=== PATIENT | female | born 1975 | race Caucasian/White ===

== ENCOUNTER 2017-03-14 07:24 | Emergency (ER) | payer BC ==
[2017-03-14 07:40] VITALS: BP 117/57
--- NOTE | 2017-03-14 08:08 | UC ---
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 SORE THROAT, HEADACHE AT ONSET. NOW COUGHING. CHEST CONGESTIN, CHILLS, NO FEVER. NO N/V". 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 She has some sinus pressure over her forehead, has had sinus infection in past. not sure if she feels that way bc she has no nasal congestion. + body aches. gets temporary relief with otc meds - dayquil and advil cold and sinus. - History of Current Complaint Chief Complaint: UCRespiratory Stated Complaint: THROAT,COUGH Time Seen by Provider: 03/14/17 07:29 Hx Last Menstrual Period: 03/02/17 - Allergies/Home Medications Allergies/Adverse Reactions: Allergies Allergy/AdvReac Type Severity Reaction Status Date / Time Hydrocodone Allergy Intermediate Vomiting Verified 03/14/17 07:33 Penicillins Allergy Intermediate HIVES AND Verified 03/14/17 07:33 VOMITING Sulfa Drugs Allergy Intermediate HIVES AND Verified 03/14/17 07:33 VOMITING Erythromycin Allergy HIVES AND Verified 03/14/17 07:33 VOMITING Home Medications: Home Medications Echinacea [Echinacea Plus] 1 cap PO DAILY 03/14/17 [History Confirmed 03/14/17] Ibuprofen TAB* [Advil TAB*] 200 mg PO Q6H PRN 03/14/17 [History Confirmed ] Lactobacillus [Probiotic] 1 cap PO DAILY 03/14/17 [History Confirmed 03/14/17] PMH/Surg Hx/FS Hx/Imm Hx Previously Healthy: Yes - Surgical History Surgical History: Yes Surgery Procedure, Year, and Place: TONSILECTOMY.. POST DELEVERY BLEEDING REQUIRED SURGERY... - Family History Known Family History: Negative: Respiratory Disease - no asthma fhx. - Social History Alcohol Use: None Substance Use Type: None Smoking Status (MU): Never Smoked Tobacco - Immunization History Most Recent Influenza Vaccination: 2012 Hx Tetanus, Diphtheria Vaccination: Yes Vaccination Up to Date: Yes Review of Systems Constitutional: Chills, Fatigue Skin: Negative Eyes: Negative ENT: Sore Throat, Ear Ache, Sinus Pain/Tenderness Respiratory: Negative Cardiovascular: Negative Gastrointestinal: Negative Genitourinary: Negative Motor: Negative Neurovascular: Negative Musculoskeletal: Negative Neurological: Negative Psychological: Negative Is Patient Immunocompromised?: No All Other Systems Reviewed And Are Negative: Yes Physical Exam Triage Information Reviewed: Yes Appearance: Well-Appearing, Well-Nourished - mild distress Vital Signs: Initial Vital Signs Temp 99.5 F 03/14/17 07:35 Pulse 100 03/14/17 07:35 Resp 18 03/14/17 07:35 BP 117/57 03/14/17 07:35 Pulse Ox 97 03/14/17 07:35 Vital Signs Reviewed: Yes Eye Exam: Normal ENT: Positive: Pharynx normal, TMs normal, Other: - mild b/l frontal tenderness , no maxillary tenderness. Negative: Pharyngeal erythema, Tonsillar swelling, Tonsillar exudate, Muffled/hoarse voice Dental Exam: Normal Neck exam: Normal Neck: Positive: Supple, Nontender, No Lymphadenopathy Respiratory Exam: Normal Respiratory: Positive: Lungs clear, Normal breath sounds, No respiratory distress, No accessory muscle use. Negative: Crackles, Rhonchi, Stridor, Wheezing Cardiovascular Exam: Normal Cardiovascular: Positive: RRR, No Murmur, Pulses Normal, Brisk Capillary Refill Abdomen Description: Positive: Nontender, Soft Musculoskeletal Exam: Normal Neurological Exam: Normal Psychological Exam: Normal Skin Exam: Normal UC Diagnostic Evaluation - Laboratory O2 Sat by Pulse Oximetry: 97 Respiratory Course/Dx - Course Course Of Treatment: rapid strep neg. early sinusitis. rx for abx has been given for ceftin which she has taken beofre and prefers to use if needed (no allergic rxn sx). Adv to fill abx if sx worsen or not improve in 2-3 days. she is very agreeable with this plan. understands very low risk chance if allergic reaction and call 911 if sx ocur. takes probiotic daily. - Differential Dx/Diagnosis Differential Diagnosis/HQI/PQRI: Asthma, Bronchitis, Laryngitis, Sinusitis Provider Diagnoses: sinsuitis Discharge - Discharge Plan Condition: Stable Disposition: HOME Prescriptions: Cefuroxime Axetil [Ceftin 500 MG TAB] 500 mg PO BID #20 tab Patient Education Materials: Sinusitis (ED) Referrals: Levar Wick DO [Primary Care Provider] - 3 Days Additional Instructions: We discussed that if you are not feeling better in a few days/sinus pain symptoms are worsening, please start the antibiotic. Continue to take the probiotic that you take while on antibiotics. Increase fluids and rest.
== END 2017-03-14 08:26 | disposition home or self-care (01) ==
LOC: UCCORT 07:24
DX: J32.9 Chronic sinusitis, unspecified (principal); Z88.1 Allergy status to other antibiotic agents; Z88.5 Allergy status to narcotic agent; Z88.0 Allergy status to penicillin; Z88.2 Allergy status to sulfonamides
CPT/HCPCS: 87651; 99212; G0463

== ENCOUNTER 2017-08-09 07:33 | Emergency (ER) | payer BC ==
--- OUTSIDE RECORDS SUMMARY | 2017-08-09 07:41 | XMS REPORT ---
:1975 External Reference #:[id number] Author Organization [facility] Address [address] [address] Phone [phone] Care Team Providers Name Role Phone Irais Ly PA Care Team Information [facility] Unavailable Payers Type Date Identification Numbers Payment Provider Subscriber Health Maintenance [facility]: [id number] Rachael Valenzuela [facility] [place] ([facility]) [address] [address] [place] [address] Problems Date Description Provider Status Onset: 10/27/2007 Anxiety state Levar Wick DO Active Onset: 06/21/2007 Irritable bowel syndrome Levar Wick DO Active Onset: 06/21/2007 Acute gastritis Levar Wick DO Active Onset: 06/21/2007 Allergic rhinitis due to pollen Levar Wick DO Active Social History Type Date Description Comments ETOH Use Denies alcohol use Smoking Patient has never smoked Daily Caffeine Consumes on average 3 cups of tea per day General Hx Text SH: Marital: Legal Status: . Lives With: Mother, Father, Spouse, Daughter. 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 Alcohol: Denies alcohol use. Daily Caffeine: Consumes on average 3 cups of tea per day. Reviewed, no changes. Date: 06/08/2014 Allergies, Adverse Reactions, Alerts Date Description Reaction Status Severity Comments 07/01/2009 Zithromax active 01/13/2006 Erythromycin active 06/03/2015 Penicillin HIVES active Medications Medication Date Status Form Strength Qnty SIG Indications Ordering Provider Prednisone 08/07/ Hx Tablets 20mg 10tabs 2 by Zayda0.Fiona Cheung 2017 - mouth for Nicolasa stein, 08/14/ 3 days, 2017 then 1 by mouth daily for 4 days, take with food Proair HFA 03/15/ Active Aerosol 108(90Base 1units 2 puffs Andre.Fiona Cheung 2016 ) mcg/Act every 4 Nicolasa stein, hours as MD needed for cough or sob Escitalopram / Active Tablets 10mg 90tabs 1 po qd Gagen, Oxalate 0000 Addison Zimmerman [employer] CNM Cyclobenzaprine 05/13/ Hx Tablets 10mg 30tabs 1 by [email or web address] Yannick HCL 2016 - mouth Valeria, 05/27/ every at DO 2016 bedtime x 1-2 weeks, then as needed for muscle spasm Prednisone 05/13/ Hx Tablets 20mg 22tabs 3 tablets M54.5 Yannick 2016 - by mouth Valeria, 05/23/ for 4 DO 2016 days then 2 tablets by mouth for 3 days then 1 tablet until done. Take with food. Doxycycline 03/15/ Hx Tablets 100mg 20tabs 1 by Zayda0.Fiona Reediotri Hyclsaeed 2016 - mouth a, 03/25/ twice a Sharron, 2016 day [employer] Prednisone 03/15/ Hx Tablets 20mg 6tabs 2x/day by [email or web address] Hubert 2016 - mouth for a, 03/18/ 3 days Sharron, 2016 [employer] Benzonatate 12/05/ Hx Capsules 200mg 30caps 1 by [email or web address] Skye 2016 - mouth Corina steinn, 12/15/ three MD 2017 times a day as needed Doxycycline 08/24/ Hx Tablets 100mg 20tabs 1 by [email or web address] [place] stylesclate 2016 - mouth Levar, 12/05/ twice a DO 2016 day Zofran 04/09/ Hx Tablets 4mg 21tabs 1 by [place] 2015 - mouth Levar, 08/24/ every 8 DO 2016 hours as needed n/v Clobetasol 08/30/ Hx Cream 0.05% 60gm apply to 691.8 [place], Propionate 2014 - area Levar, 05/06/ twice a DO 2014 day Nystatin-Triamcin 06/08/ Hx Cream [id number] 60gm apply to [place] olone 2013 - Unit/GM-% rash Levar, 08/24/ twice a DO 2016 day Nystatin 06/08/ Hx Powder [id number] 60gm apply to [place], 2013 - /GM area Levar, 08/24/ three DO 2016 times per week Doxycycline 05/17/ Hx Capsules 100mg 20caps 1 by [place], Monohydrate 2013 - mouth Levar, 08/30/ twice a DO 2014 day Immunizations CPT Code Status Date Vaccine Reaction Lot # [id number] Given 06/13/2017 Fluvirin Immunization Given at [facility],Rte 281 [id number] Given 07/04/2015 Influenza Vaccine Given At Pharmacy Preservative & Antibiotic [facility] Free For Im Use 14859 Given 04/02/2014 Afluria Or Fluvirin Flu Vac RECEIVED AT [place] [id number] Intramuscular 86221 Given 05/28/2009 Administration Swine Flu Vaccine [id number] Given 05/25/2008 Tdap (Adacel) Ages 7 And Above Only 75850 Given 05/14/2008 Afluria Or Fluvirin Flu Vac Intramuscular 47656 Given 06/17/2007 Afluria Or Fluvirin Flu Vac Intramuscular 04349 Given 06/17/2007 Afluria Or Fluvirin Flu Vac Intramuscular Vital Signs Date Vital Result Comment 08/07/2017 Body Temperature 99.3 F Weight 217.00 lb Heart Rate 102 /min BP Systolic 126 mmHg BP Diastolic 72 mmHg Respiratory Rate 18 /min Height 61 inches 5'1" O2 % BldC Oximetry 97 % BMI (Body Mass Index) 41.0 kg/m2 05/13/2017 Body Temperature 98.2 F Weight 216.00 lb Heart Rate 72 /min BP Systolic 130 mmHg BP Diastolic 70 mmHg Respiratory Rate 18 /min 03/15/2017 Body Temperature 100.0 F Weight 217.00 lb Heart Rate 106 /min BP Systolic 118 mmHg BP Diastolic 72 mmHg Respiratory Rate 18 /min O2 % BldC Oximetry 96 % 12/05/2016 Weight 218.00 lb Heart Rate 82 /min BP Systolic 130 mmHg BP Diastolic 80 mmHg Respiratory Rate 18 /min O2 % BldC Oximetry 98 % 08/24/2016 Body Temperature 100.6 F Weight 209.00 lb Heart Rate 78 /min BP Systolic 130 mmHg BP Diastolic 80 mmHg Respiratory Rate 24 /min Height 61.25 inches 5'1.25" O2 % BldC Oximetry 98 % Ra BMI (Body Mass Index) 39.2 kg/m2 06/03/2015 Body Temperature 99.1 F Weight 224.00 lb Heart Rate 74 /min BP Systolic 118 mmHg BP Diastolic 72 mmHg Respiratory Rate 18 /min Height 61 inches 5'1" BMI (Body Mass Index) 42.3 kg/m2 10/01/2014 Body Temperature 99.6 F Weight 224.00 lb Heart Rate 78 /min BP Systolic 130 mmHg BP Diastolic 70 mmHg Respiratory Rate 24 /min Height 61 inches 5'1" O2 % BldC Oximetry 99 % Ra BMI (Body Mass Index) 42.3 kg/m2 08/30/2014 Body Temperature 99.4 F Weight 218.00 lb Heart Rate 78 /min BP Systolic 132 mmHg BP Diastolic 80 mmHg Respiratory Rate 24 /min Height 61 inches 5'1" BMI (Body Mass Index) 41.2 kg/m2 06/08/2014 Weight 222.00 lb Heart Rate 78 /min BP Systolic 112 mmHg BP Diastolic 70 mmHg Respiratory Rate 18 /min Height 61 inches 5'1" 05/15/2014 Body Temperature 98.6 F Weight 220.00 lb Heart Rate 82 /min BP Systolic 122 mmHg BP Diastolic 72 mmHg Respiratory Rate 18 /min Height 61 inches 5'1" O2 % BldC Oximetry 98 % Ra 04/16/2014 Body Temperature 98.9 F Weight 217.00 lb Heart Rate 70 /min BP Systolic 130 mmHg BP Diastolic 70 mmHg Respiratory Rate 18 /min Height 61 inches 5'1" 01/19/2014 Weight 218.00 lb Heart Rate 92 /min BP Systolic 128 mmHg BP Diastolic 78 mmHg Respiratory Rate 18 /min Height 61 inches 5'1" 05/26/2013 Body Temperature 99.2 F Weight 220.00 lb Heart Rate 78 /min BP Systolic 110 mmHg BP Diastolic 70 mmHg Respiratory Rate 18 /min O2 % BldC Oximetry 97 % Ra 03/27/2013 Body Temperature 98.2 F Weight 223.00 lb Heart Rate 70 /min BP Systolic 120 mmHg BP Diastolic 72 mmHg Respiratory Rate 18 /min 11/29/2012 Body Temperature 98.3 F Weight 213.00 lb Heart Rate 68 /min BP Systolic 128 mmHg BP Diastolic 70 mmHg Respiratory Rate 18 /min 10/28/2012 Weight 214.50 lb Heart Rate 84 /min BP Systolic 128 mmHg BP Diastolic 80 mmHg Respiratory Rate 16 /min Height 61 inches 5'1" 07/04/2012 Body Temperature 97.7 F Weight 203.00 lb Heart Rate 76 /min BP Systolic 120 mmHg BP Diastolic 74 mmHg Respiratory Rate 18 /min Height 61 inches 5'1" 05/11/2012 Body Temperature 98.4 F Weight 224.00 lb Heart Rate 95 /min BP Systolic 112 mmHg BP Diastolic 76 mmHg Respiratory Rate 19 /min O2 % BldC Oximetry 97 % 03/01/2012 Body Temperature 99.1 F Weight 219.00 lb (6 1/2 Mo ) Heart Rate 72 /min BP Systolic 110 mmHg BP Diastolic 72 mmHg Respiratory Rate 18 /min 01/23/2012 Body Temperature 98.3 F Weight 211.00 lb Heart Rate 76 /min BP Systolic 120 mmHg BP Diastolic 72 mmHg Respiratory Rate 18 /min 09/08/2011 Body Temperature 99.0 F Weight 210.00 lb Heart Rate 72 /min BP Systolic 118 mmHg BP Diastolic 76 mmHg Respiratory Rate 18 /min O2 % BldC Oximetry 98 % Ra 08/10/2011 Body Temperature 98.9 F Weight 220.00 lb Heart Rate 78 /min BP Systolic 120 mmHg BP Diastolic 80 mmHg Respiratory Rate 18 /min 07/14/2011 Weight 209.00 lb Heart Rate 66 /min BP Systolic 124 mmHg BP Diastolic 70 mmHg Respiratory Rate 18 /min 06/18/2011 Weight 208.00 lb Heart Rate 72 /min BP Systolic 110 mmHg BP Diastolic 70 mmHg Respiratory Rate 18 /min O2 % BldC Oximetry 98 % Ra 06/12/2011 Body Temperature 98.6 F Weight 212.00 lb Heart Rate 66 /min BP Systolic 132 mmHg BP Diastolic 72 mmHg Respiratory Rate 18 /min O2 % BldC Oximetry 95 % Ra 05/06/2011 Body Temperature 98.9 F Weight 208.25 lb Heart Rate 77 /min BP Systolic 124 mmHg BP Diastolic 78 mmHg Respiratory Rate 17 /min Height 61 inches 5'1" 02/05/2011 Weight 204.00 lb Heart Rate 72 /min BP Systolic 138 mmHg BP Diastolic 72 mmHg Respiratory Rate 18 /min Height 61 inches 5'1" 02/02/2011 Body Temperature 99.2 F Weight 202.00 lb Heart Rate 78 /min BP Systolic 128 mmHg BP Diastolic 70 mmHg Height 61 inches 5'1" 11/03/2010 Body Temperature 99.8 F Weight 202.00 lb Heart Rate 78 /min BP Systolic 134 mmHg BP Diastolic 76 mmHg Respiratory Rate 16 /min 10/07/2010 BP Systolic 120 mmHg BP Diastolic 80 mmHg 10/07/2010 Weight 202.00 lb Heart Rate 78 /min 72 Reg BP Systolic 126 mmHg BP Diastolic 80 mmHg Respiratory Rate 24 /min 07/29/2010 Body Temperature 99.0 F Weight 202.00 lb Heart Rate 70 /min BP Systolic 118 mmHg BP Diastolic 70 mmHg Respiratory Rate 14 /min 06/06/2010 Weight 203.00 lb Heart Rate 78 /min BP Systolic 118 mmHg BP Diastolic 76 mmHg Respiratory Rate 18 /min 05/23/2010 Body Temperature 98.6 F Weight 200.00 lb Heart Rate 80 /min BP Systolic 114 mmHg BP Diastolic 80 mmHg Respiratory Rate 16 /min 05/07/2010 Weight 202.00 lb Heart Rate 88 /min BP Systolic 128 mmHg LEFT BP Diastolic 82 mmHg LEFT Respiratory Rate 20 /min 04/11/2010 Body Temperature 100.4 F Weight 198.00 lb Heart Rate 16 /min BP Systolic 112 mmHg l arm BP Diastolic 70 mmHg l arm Respiratory Rate 18 /min 02/26/2010 Weight 197.06 lb Heart Rate 78 /min BP Systolic 106 mmHg BP Diastolic 72 mmHg Respiratory Rate 18 /min 01/29/2010 Body Temperature 99.8 F Weight 197.00 lb Heart Rate 78 /min BP Systolic 122 mmHg BP Diastolic 82 mmHg Respiratory Rate 18 /min O2 % BldC Oximetry 99 % Ra 12/06/2009 Body Temperature 99.6 F Heart Rate 64 /min BP Systolic 120 mmHg l arm BP Diastolic 80 mmHg l arm Respiratory Rate 18 /min 10/28/2009 Body Temperature 97.9 F Weight 199.12 lb Heart Rate 74 /min BP Systolic 118 mmHg BP Diastolic 70 mmHg 10/11/2009 Body Temperature 99.7 F Weight 200.00 lb Heart Rate 79 /min BP Systolic 130 mmHg BP Diastolic 72 mmHg 08/13/2009 Body Temperature 99.1 F Weight 199.00 lb Heart Rate 70 /min BP Systolic 122 mmHg BP Diastolic 80 mmHg Respiratory Rate 16 /min 07/01/2009 Weight 206.00 lb Heart Rate 78 /min BP Systolic 110 mmHg BP Diastolic 70 mmHg Respiratory Rate 24 /min O2 % BldC Oximetry 98 % 06/21/2009 Body Temperature 98.4 F Weight 206.00 lb Heart Rate 92 /min BP Systolic 112 mmHg BP Diastolic 80 mmHg Respiratory Rate 16 /min O2 % BldC Oximetry 93 % 05/20/2009 Body Temperature 99.0 F Weight 209.00 lb Heart Rate 84 /min BP Systolic 130 mmHg BP Diastolic 78 mmHg Respiratory Rate 16 /min 05/14/2009 Body Temperature 99.3 F Weight 208.00 lb Heart Rate 86 /min BP Systolic 132 mmHg BP Diastolic 80 mmHg 04/05/2009 Weight 211.00 lb Heart Rate 72 /min BP Systolic 124 mmHg BP Diastolic 82 mmHg Respiratory Rate 18 /min 03/18/2009 Body Temperature 99.4 F Weight 208.00 lb Heart Rate 68 /min BP Systolic 112 mmHg RIGHT BP Diastolic 72 mmHg RIGHT Respiratory Rate 15 /min 01/21/2009 Weight 208.00 lb Heart Rate 72 /min BP Systolic 124 mmHg BP Diastolic 72 mmHg Respiratory Rate 18 /min 01/09/2009 Body Temperature 98.4 F Weight 206.00 lb Heart Rate 68 /min BP Systolic 132 mmHg LEFT BP Diastolic 80 mmHg LEFT Respiratory Rate 16 /min 12/25/2008 Body Temperature 98.8 F Weight 201.00 lb Heart Rate 102 /min BP Systolic 112 mmHg BP Diastolic 80 mmHg Respiratory Rate 20 /min O2 % BldC Oximetry 97 % 12/22/2008 Body Temperature 99.0 F Weight 203.31 lb Heart Rate 72 /min BP Systolic 122 mmHg BP Diastolic 72 mmHg Respiratory Rate 18 /min O2 % BldC Oximetry 99 % On Room Air 12/21/2008 Body Temperature 99.0 F Weight 205.00 lb Heart Rate 84 /min BP Systolic 116 mmHg BP Diastolic 72 mmHg Respiratory Rate 18 /min 10/12/2008 Body Temperature 98.5 F Weight 202.00 lb Heart Rate 72 /min BP Systolic 118 mmHg BP Diastolic 80 mmHg Respiratory Rate 14 /min 10/03/2008 Body Temperature 99.4 F Weight 199.00 lb Heart Rate 78 /min BP Systolic 108 mmHg BP Diastolic 66 mmHg Respiratory Rate 18 /min 10/01/2008 Body Temperature 100.4 F Weight 197.00 lb Heart Rate 80 /min BP Systolic 120 mmHg BP Diastolic 88 mmHg Respiratory Rate 16 /min 09/21/2008 Weight 200.00 lb Heart Rate 72 /min BP Systolic 112 mmHg BP Diastolic 72 mmHg Respiratory Rate 18 /min 08/23/2008 Body Temperature 99.5 F Weight 198.00 lb Heart Rate 72 /min BP Systolic 118 mmHg BP Diastolic 72 mmHg Respiratory Rate 18 /min O2 % BldC Oximetry 87 % On Room Air. 06/26/2008 Body Temperature 98.0 F Weight 196.00 lb Heart Rate 72 /min BP Systolic 118 mmHg BP Diastolic 68 mmHg Respiratory Rate 18 /min 06/07/2008 Body Temperature 97.5 F Weight 197.00 lb Heart Rate 84 /min BP Systolic 118 mmHg BP Diastolic 76 mmHg Respiratory Rate 24 /min O2 % BldC Oximetry 98 % 05/25/2008 Weight 198.00 lb Heart Rate 78 /min BP Systolic 124 mmHg BP Diastolic 76 mmHg Respiratory Rate 18 /min 05/14/2008 Weight 196.00 lb Heart Rate 72 /min BP Systolic 118 mmHg BP Diastolic 76 mmHg Respiratory Rate 18 /min 02/29/2008 Body Temperature 98.0 F Weight 193.00 lb Heart Rate 110 /min BP Systolic 110 mmHg BP Diastolic 70 mmHg Respiratory Rate 16 /min O2 % BldC Oximetry 97 % Room Air 01/02/2008 Weight 187.00 lb Heart Rate 72 /min BP Systolic 100 mmHg BP Diastolic 70 mmHg Respiratory Rate 16 /min 12/27/2007 Body Temperature 97.4 F Weight 187.00 lb Heart Rate 72 /min BP Systolic 104 mmHg BP Diastolic 72 mmHg Respiratory Rate 18 /min O2 % BldC Oximetry 98 % Ra 12/23/2007 Body Temperature 97.9 F Weight 190.00 lb Heart Rate 78 /min BP Systolic 118 mmHg BP Diastolic 78 mmHg Respiratory Rate 18 /min 12/05/2007 Weight 189.00 lb Heart Rate 72 /min BP Systolic 128 mmHg BP Diastolic 72 mmHg Respiratory Rate 18 /min 10/27/2007 Weight 189.00 lb Heart Rate 78 /min BP Systolic 128 mmHg BP Diastolic 66 mmHg Respiratory Rate 18 /min 10/06/2007 Body Temperature 97.6 F Weight 190.00 lb Heart Rate 78 /min BP Systolic 118 mmHg BP Diastolic 70 mmHg Respiratory Rate 18 /min 09/13/2007 Weight 192.00 lb Heart Rate 72 /min BP Systolic 114 mmHg BP Diastolic 74 mmHg Respiratory Rate 18 /min 08/23/2007 BP Systolic 120 mmHg BP Diastolic 78 mmHg 08/23/2007 Weight 192.00 lb Heart Rate 72 /min BP Systolic 128 mmHg BP Diastolic 78 mmHg Respiratory Rate 18 /min 06/21/2007 Weight 190.00 lb Heart Rate 66 /min BP Systolic 114 mmHg BP Diastolic 70 mmHg Respiratory Rate 18 /min 06/04/2007 Body Temperature 98.6 F Weight 190.00 lb Heart Rate 86 /min BP Systolic 100 mmHg BP Diastolic 72 mmHg Respiratory Rate 17 /min 04/21/2007 Weight 183.00 lb Heart Rate 72 /min BP Systolic 118 mmHg BP Diastolic 68 mmHg Respiratory Rate 18 /min 03/24/2007 Body Temperature 99.0 F Weight 182.00 lb Heart Rate 72 /min BP Systolic 110 mmHg BP Diastolic 74 mmHg Respiratory Rate 18 /min O2 % BldC Oximetry 98 % 03/01/2007 Weight 177.00 lb Heart Rate 78 /min BP Systolic 132 mmHg BP Diastolic 76 mmHg Respiratory Rate 18 /min 02/07/2007 Body Temperature 99.4 F Weight 179.00 lb Heart Rate 80 /min BP Systolic 100 mmHg BP Diastolic 70 mmHg Respiratory Rate 18 /min 12/25/2006 Body Temperature 98.2 F Weight 178.00 lb Heart Rate 80 /min BP Systolic 110 mmHg BP Diastolic 74 mmHg Respiratory Rate 16 /min 11/15/2006 Weight 176.00 lb Heart Rate 72 /min BP Systolic 118 mmHg BP Diastolic 72 mmHg Respiratory Rate 18 /min 11/05/2006 Body Temperature 98.9 F Weight 177.00 lb Heart Rate 72 /min BP Systolic 112 mmHg BP Diastolic 68 mmHg Respiratory Rate 18 /min 10/29/2006 Body Temperature 98.2 F Weight 177.00 lb Heart Rate 72 /min BP Systolic 122 mmHg BP Diastolic 72 mmHg Respiratory Rate 18 /min 10/12/2006 Body Temperature 99.3 F Weight 170.00 lb Heart Rate 72 /min BP Systolic 130 mmHg BP Diastolic 72 mmHg Respiratory Rate 18 /min 10/05/2006 Body Temperature 99.0 F Weight 176.00 lb Heart Rate 72 /min BP Systolic 126 mmHg BP Diastolic 76 mmHg Respiratory Rate 18 /min 06/24/2006 Body Temperature 98.0 F Weight 172.00 lb Heart Rate 72 /min BP Systolic 120 mmHg BP Diastolic 68 mmHg Respiratory Rate 18 /min 05/04/2006 Body Temperature 98.8 F Weight 178.00 lb Heart Rate 72 /min BP Systolic 104 mmHg BP Diastolic 64 mmHg Respiratory Rate 12 /min 01/13/2006 Body Temperature 99.3 F Had Tylenol Weight 165.00 lb Heart Rate 100 /min BP Systolic 101 mmHg BP Diastolic 74 mmHg Respiratory Rate 12 /min 03/04/2005 Body Temperature 98.3 F Weight 164.00 lb Heart Rate 84 /min BP Systolic 112 mmHg BP Diastolic 78 mmHg Respiratory Rate 18 /min 02/20/2005 Weight 162.00 lb BP Systolic 110 mmHg BP Diastolic 80 mmHg 01/02/2005 Weight 169.00 lb Heart Rate 84 /min Reg BP Systolic 108 mmHg LEFT BP Diastolic 78 mmHg LEFT Results Test Date Test Result H/L Range Note Laboratory test 12/05/2016 Throat Culture Cancelled 1 finding Laboratory test 12/05/2016 Throat PO Culture SPECIMEN 2 finding DESCRI> Laboratory test 06/03/2015 Urine Culture Microbiology res 3 finding <SEE NOTE> Laboratory test 10/01/2014 Throat Culture Microbiology res 4 finding <SEE NOTE> Glycohemoglobin A1c 08/30/2014 Glycohemoglobin 6.1 % 4.2-6.5 5 (A1c) eAG 128 mg/dL Basic Metabolic Panel 08/30/2014 Glucose 114 mg/dL High 74-106 BUN 14 mg/dL 7-18 Creatinine 0.8 mg/dL 0.6-1.3 Glom Filtration Rate, Estimate >60 mL/min >60 If >60 mL/min >60 6 BUN/Creat 17.5 ratio Sodium 139 mmol/L 136-145 Potassium 3.7 mmol/L 3.5-5.1 Chloride 105 mmol/L 98-107 Carbon Dioxide 26 mmol/L 21-32 Anion Gap 8 mEq/L 8-16 Calcium 9.1 mg/dL 8.5-10.1 Laboratory test finding 08/30/2014 Thyroxine (T4) 10.3 g/dL 4.7-13.5 Thyroid Stim Hormone 3.19 uIU/mL 0.36-3.74 Laboratory test finding 05/15/2014 Throat Culture Complete See Note 7 Laboratory test finding 03/01/2012 Culture Urine See Note 8 Laboratory test finding 05/06/2011 Surgical Pathology See Note 9 Laboratory test finding 02/02/2011 A/G Ratio 1.2 1.0-2.2 Absolute Basophils 0.089 K/ul 0.0-0.3 Absolute Eosinophils 0.042 K/ul 0.0-0.5 Absolute Lymphocytes 3.05 K/ul 0.8-4.8 Absolute Monocytes 0.618 K/ul 0.1-1.0 Absolute Neutrophils 7.03 K/ul 2.05-7.63 Albumin 4.0 g/dL 3.5-5.0 Alkaline Phosphatase 134 U/L High 30-126 Alt 19 U/L 9-52 Ast 16 U/L 14-36 BUN 10 mg/dL 7-18 BUN/CR Ratio 13.5 Ratio 12-20 Basophil 0.8 % 0-2 Calcium 9.4 mg/dL 8.7-10.5 Carbon Dioxide 25 mmol/L 22-30 Chloride 102 mmol/L 98-107 Creatinine, Serum 0.7 mg/dL 0.7-1.2 Eosinophil 0.4 % 0-4 Globulin 3.4 g/dL 2.7-4.3 Glucose 115 mg/dL High 65-105 Hematocrit 38.8 % 37.0-51.0 Hemoglobin 12.5 GM/dl 12.0-16.0 Lymphocytes 28.2 % 20-44 MCH 25.1 pg Low 26.0-32.0 MCHC 32.3 g/dL 31.0-36.0 MCV 78 FL Low 80-97 Monocytes 5.7 % 2-10.0 Neutrophils 64.9 % 50-70 Platelet Count 438 K/ul 140-440 Potassium 4.7 mmol/L 3.6-5.0 RBC 5.00 M/ul 4.2-6.3 RDW 12.6 % 11.5-14.5 Serum Iron 40 g/dL 25-156 10 Sodium 143 mmol/L 137-145 TSH 2.419 uIU/ml 0.50-6.00 Total Bilirubin 0.3 mg/dL 0.2-1.3 Total Protein 7.4 g/dL 6.3-8.2 WBC 10.8 K/ul 4.1-10.9 Laboratory test 04/11/2010 Culture Throat See Note 11 finding Laboratory test 02/06/2010 Tonsillectomy See Note 12 finding Laboratory test 04/05/2009 Culture Urine <see 13 finding comment> Laboratory test 01/10/2009 Culture Throat Normal Throat FL 14 finding <See Note> Laboratory test 12/22/2008 Throat Culture <see 15 finding Complete comment> Laboratory test 12/21/2008 Rapid Strep Test Negative finding Laboratory test 10/12/2008 Culture Urine <see 16 finding comment> Laboratory test 10/01/2008 Culture Urine <see 17 finding comment> Vitamin B12 And 05/14/2008 Folic Acid > 40.0 ng/mL High 6.0-15.4 Folate Vitamin B12 453 pg/mL 208-964 Laboratory test finding 05/14/2008 Anion Gap 10 mEq/L 8-16 BUN 9 mg/dL 5-23 BUN/Creat 15.0 Calcium 8.8 mg/dL 8.5-10.1 Carbon Dioxide 28 mEq/L 21-32 Chloride 103 mEq/L 98-107 Creatinine 0.6 mg/dL 0.5-1.4 Free T4 0.78 ng/dL 0.71-1.85 Glucose 109 mg/dL 76-115 Glycohemoglobin A1c 5.8 % 4.8-6.0 18 Potassium 3.8 mEq/L 3.5-5.1 Sodium 137 mEq/L 136-145 Thyroid Stim Hormone 1.96 uIU/mL 0.49-4.67 Vitamin D,25-Hydroxy 40.3 ng/mL 32.0-100.0 19 Laboratory test finding 12/25/2007 Alb/Glob 0.8 Albumin 3.3 g/dL Low 3.5-5.0 Alkaline Phosphatase 146 U/L High 50-136 Anion Gap 16 mEq/L 8-16 BUN 4 mg/dL Low 5-23 BUN/Creat 5.7 Band% 11 % High 0-8 Bilirubin,Total 0.3 mg/dL 0.2-1.2 CBS W/Automated Diff DNR 20 Calcium 9.3 mg/dL 8.5-10.1 Carbon Dioxide 28 mEq/L 21-32 Chloride 98 mEq/L 98-107 Creatinine 0.7 mg/dL 0.5-1.4 Globulin 4.3 gm/dL 1.9-4.3 Glom Filtration Rate, Estimate >60 mL/min >60 Glucose 126 mg/dL High 76-115 HCG Serum, Qualitative Negative Hematocrit 39.0 % 36.0-46.1 Hemoglobin 13.0 gm/dL 11.6-15.8 If >60 mL/min >60 21 Lymph% 8 % Low 17-56 Mean Cell Volume 87.6 fl 80.9-99.0 Mean Corpuscular HGB 29.2 pg 25.9-32.7 Mean Corpuscular HGB Conc 33.3 g/dL 30.8-34.3 Mean Platelet Volume 9.6 fL 8.9-12.4 Monocyte% 6 % 0-10 Monoscreen (Heterophile) Negative Negative 22 Neutrophils% 75 % High 33-73 Platelet Count 292 K/uL 155-360 Platelet Estimate Normal Potassium 4.0 mEq/L 3.5-5.1 RBC Morphology Normal Red Blood Count 4.45 M/uL 3.90-5.40 Red Cell Distri Width %CV 12.9 % 11.7-14.4 SGPT/Alt 45 U/L 30-65 Sgot/Ast 19 U/L 16-40 Sodium 138 mEq/L 136-145 Total Cells Counted 100 #CELLS Total Protein 7.6 g/dL 6.3-8.0 White Blood Count 13.8 K/uL High 3.1-10.7 Laboratory test finding 12/23/2007 Rapid Strep Test Negative Laboratory test finding 06/04/2007 Rapid Strep Test negative Laboratory test finding 11/03/2006 Anion Gap 11 mEq/L 8-16 BUN 7 mg/dL 5-23 BUN/Creat 10.0 Bas% 0.6 % 0.1-1.0 Baso # 0.1 K/uL 0.1-0.2 Calcium 9.3 mg/dL 8.5-10.1 Carbon Dioxide 28 mEq/L 21-32 Chloride 102 mEq/L 98-107 Creatinine 0.7 mg/dL 0.5-1.4 Eo% 0.4 % 0.0-5.0 Eos # 0.0 K/uL 0.0-0.5 Glucose 114 mg/dL 76-115 Hematocrit 41.4 % 34.0-46.0 Hemoglobin 14.2 gm/dL 11.5-15.5 Lipase 170 U/L 114-286 Levi# 0.3 0.0-1.5 Levi% 3.4 % 0.0-4.0 Lymph # 2.8 K/uL 1.2-4.0 Lymph % 27.5 % 17.0-56.0 Mean Cell Volume 88.9 fL 80.0-96.0 Mean Corpuscular HGB 30.5 pg 27.0-33.0 Mean Corpuscular HGB Conc 34.3 g/dL 31.7-36.0 Mean Platelet Volume 7.0 fl 6.6-10.6 Gem # 0.4 K/uL 0.0-0.6 Gem % 3.9 % 0.0-10.0 Neut# 6.5 K/uL 1.8-7.0 Neut% 64.3 % 33.0-73.0 Platelet Count 306 K/uL 150-400 Potassium 3.4 mEq/L Low 3.5-5.1 Red Blood Count 4.66 M/uL 3.90-5.20 Red Cell Distri Width %CV 12.3 % 11.6-15.8 Sodium 138 mEq/L 136-145 Urine Bilirubin - Dipstick Negative Negative Urine Blood Negative Negative Urine Clarity Clear Clear Urine Color Straw Yellow Urine Glucose - Dipstick Negative Negative m Urine HCG (Qualitative) Negative Negative 23 Urine Ketone Negative Negative m Urine Leuk Esterase Negative Negative Urine Nitrite - Dipstick Negative Negative Urine PH 7.0 6.5-7.5 Urine Protein - Dipstick Negative Negative m Urine Specific [place] 1.010 1.010-1.030 Urine Urobilinogen - Dipstick 0.2 E.U./dL 0.2-1.0 White Blood Count 10.0 K/uL 3.4-10.5 Liver Function Tests 11/03/2006 Albumin 3.6 g/dL 3.5-5.0 Alkaline Phosphatase 108 U/L 50-136 Bilirubin,Direct 0.1 mg/dL 0.1-0.4 Bilirubin,Indirect 0.2 mg/dL 0.0-0.9 Bilirubin,Total 0.3 mg/dL 0.2-1.2 SGPT/Alt 55 U/L 30-65 Sgot/Ast 23 U/L 16-40 Total Protein 7.6 g/dL 6.3-8.0 Laboratory test finding 10/29/2006 Helicobacter Pylori, Igg <0.9 U/mL 0.0-0.8 24 Laboratory test finding 10/19/2006 Anion Gap 11 mEq/L 8-16 BUN 8 mg/dL 5-23 BUN/Creat 10.0 Bas% 0.4 % 0.1-1.0 Baso # 0.1 K/uL 0.1-0.2 CK 19 U/L Low 26-190 Calcium 9.0 mg/dL 8.5-10.1 Carbon Dioxide 27 mEq/L 21-32 Chloride 104 mEq/L 98-107 Creatinine 0.8 mg/dL 0.5-1.4 Eo% 0.7 % 0.0-5.0 Eos # 0.1 K/uL 0.0-0.5 Glucose 100 mg/dL 76-115 HCG Serum, Qualitative Negative Hematocrit 37.7 % 34.0-46.0 Hemoglobin 13.1 gm/dL 11.5-15.5 Levi# 0.2 0.0-1.5 Levi% 1.4 % 0.0-4.0 Lymph # 2.7 K/uL 1.2-4.0 Lymph % 23.8 % 17.0-56.0 Mean Cell Volume 86.3 fL 80.0-96.0 Mean Corpuscular HGB 30.1 pg 27.0-33.0 Mean Corpuscular HGB Conc 34.9 g/dL 31.7-36.0 Mean Platelet Volume 7.1 fl 6.6-10.6 Gem # 0.4 K/uL 0.0-0.6 Gem % 3.7 % 0.0-10.0 Neut# 7.9 K/uL High 1.8-7.0 Neut% 70.0 % 33.0-73.0 Platelet Count 323 K/uL 150-400 Potassium 3.8 mEq/L 3.5-5.1 Red Blood Count 4.37 M/uL 3.90-5.20 Red Cell Distri Width %CV 12.2 % 11.6-15.8 Sodium 138 mEq/L 136-145 Troponin-I 0.0 ng/mL 0.0-0.6 25 White Blood Count 11.3 K/uL High 3.4-10.5 Laboratory test finding 03/04/2005 Culture Urine <see comment> 26 Laboratory test finding 02/20/2005 Anion Gap 12 mEq/L 8-16 BUN 11 mg/dL 5-23 BUN/Creat 13.7 Calcium 9.6 mg/dL 8.5-10.1 Carbon Dioxide 29 mEq/L 21-32 Chloride 106 mEq/L 98-107 Creatinine 0.8 mg/dL 0.5-1.4 Free T4 0.91 ng/dL 0.71-1.85 Glucose 113 mg/dL 76-115 Hematocrit 40.6 % 34.0-46.0 Hemoglobin 14.4 gm/dL 11.5-15.5 Mean Cell Volume 88.5 fL 80.0-96.0 Mean Corpuscular HGB 31.4 pg 27.0-33.0 Mean Corpuscular HGB Conc 35.5 g/dL 31.7-36.0 Mean Platelet Volume 7.9 fl 6.6-10.6 Platelet Count 311 K/uL 150-400 Potassium 4.3 mEq/L 3.5-5.1 Red Blood Count 4.58 M/uL 3.90-5.20 Red Cell Distri Width %CV 12.6 % 11.6-15.8 Sodium 143 mEq/L 136-145 Thyroid Stim Hormone 1.24 uIU/mL 0.49-4.67 White Blood Count 8.7 K/uL 3.4-10.5 1 RESULTS IN MEDENT 2 SPECIMEN DESCRIPTION THROAT SWAB SPECIAL REQUESTS NOT TREATED CULTURE RESULTS NORMAL THROAT LUCY NEGATIVE FOR BETA HEMOLYTIC STREPTOCOCCI GROUPS A,C OR G. REPORT STATUS FINAL 12/07/2016 3 Microbiology results SOURCE MIDU FINAL RESULT No growth 4 Microbiology results RESULT Beta Strep Not Group A Isolated 5 Elevated levels of HbA1c suggest the need for more aggressive treatment of glycemia. The [place] [employer] recommends that a primary goal of therapy should be a HbA1c of <7% and that physicians should re-evaluate the treatment regimen in patients with HbA1c values consistently >8%. 6 Note: Persistent reduction for 3 months or more in an eGFR <60 mL/min/1.73 m2 defines CKD. Patients with eGFR values >/=60 mL/min/1.73 m2 may also have CKD if evidence of persistent proteinuria is present. The original MDRD equation for estimated GFR is not valid for patients less than 18 years of age. Additional information may be found at www.kdoqi.org. 7 NORMAL THROAT LUCY 8 COLONY COUNT ! 50,000 - 60,000 CFU/ml Organism 1 ! URETHRAL LUCY 9 [facility] [address], [address] [place] [address] SURGICAL PATHOLOGY REPORT Name: Rachael Lao Pathology #: [id number] : 1975 (Age: 35) Sex: F Location: [facility] Soc. Sec. #: [id number] Date of Procedure: 05/06/2011 Billing #: [id number] Date Received: 05/06/2011 Med. Rec. # [id number] Requisition #: [id number] Physician(s): VALERIA BERMEO DO Specimen(s) Received: Left axilla Clinical Information: Irritated skin tag in left axilla in a 35-year-old female. Papilloma, rule out malignancy. 701.8. Gross Description: Specimen received in formalin and labeled with the patient's name is a soft michelle westbrook to pink polypoid tissue fragment measuring 0.5 cm in greatest dimension. Specimen is bisected and entirely submitted. (1 block) cf /KBS Diagnosis: LEFT AXILLA, POLYPOID COMPOUND NEVUS. Reported: 05/07/2011 Electronic Signature cf Reymundo Laws MD [facility] ICD-9 Codes: 216.9 10 QUERY: @EMR Pat ID: QUERY: @EMR Req #: QUERY: Is the Patient Fasting? U 11 NORMAL THROAT LUCY 12 OPERATION/PROCEDURE Tonsillectomy DIAGNOSIS: "RIGHT & LEFT TONSILS": CHRONIC TONSILLITIS. ACTINOMYCETES COLONIZATION. WYEl/clf GROSS Part 1: The specimen is received in a single container additionally labeled "R TONSIL" is a mucosal covered grossly recognizable tonsil overall measuring 2.3 x 1.8 x 0.8 cm. The gross cut surface fails to reveal the presence of focal abnormalities. The cut surface reveals only the presence of normal appearing clefts and lymphoid parenchyma. Bacon Stringer sections are submitted in one cassette. Part 2: The specimen is received in a single container additionally labeled "L TONSIL" is a mucosal covered grossly recognizable tonsil overall measuring 2.7 x 1.8 x 1.4 cm. The gross cut surface fails to reveal the presence of focal abnormalities. The cut surface reveals only the presence of normal appearing clefts and lymphoid parenchyma. Bacon Stringer sections are submitted in one cassette. JW/clf MICROSCOPIC Part 1 & 2: Sections from both tonsils reveal squamous mucosa overlying follicular hyperplastic lymphoid tonsillar tissue. Within the clefts, circular collections of purple filamentous organisms consistent with Actinomycetes are noted. PRE OPERATIVE DIAGNOSIS Tonsil hypertrophy; chronic tonsillitis REVIEW CODE CODE: I ----- CAMI Mar MD 02/10/10 ----- 13 COLONY COUNT ! 10,000 - 20,000 CFU/ml Organism 1 ! MIXED URETHRAL LUCY 14 NORMAL THROAT LUCY 15 Organism 1 ! BETA HEMOLYTIC STREP NON A QUANTITY ! MANY 16 COLONY COUNT ! 10,000 - 20,000 CFU/ml Organism 1 ! URETHRAL LUCY 17 COLONY COUNT ! >100,000 CFU/ml Organism 1 ! ESCHERICHIA COLI QUANTITY ! MANY ESCHERICHIA COLI Target Route Dose M.I.C. RX AB COST ------ ----- -------- ------ -- ------ NITROFURANTOIN <=16 S TRIMETHOPRIM/ SULFAMETHOXAZOLE >=320 R AMPICILLIN <=2 S CEFAZOLIN <=4 S AMPICILLIN/SULBACTAM <= 2 S CIPROFLOXACIN >=4 R PIPERACILLIN/TAZOBACTAM <=4 S CEFTAZIDIME <=1 S CEFTRIAXONE <=1 S CEFEPIME <=1 S LEVOFLOXACIN >=8 R IMIPENEM <=1 S GENTAMICIN <=1 S TOBRAMYCIN <=1 S 18 Current guidelines recommend a treatment goal of <7% for diabetic patients. This method will measure glycosylated hemoglobin variants, HbS, HbG, HbH, HbWayne, HbC, HbE, etc. Other hemoglobin- opathies may give incorrect results with this test. Note change in expected values for healthy individuals 19 Recent studies consider the lower limit of 32.0 ng/mL to be a threshold for optimal health. Bora CRAWFORD. J Nutr. 2005 Aug;135(2):317-22. 20 12/25/07 LAB.PLW DIFF NEEDED 21 Note: Persistent reduction for 3 months or more in an eGFR <60 mL/min/ 1.73 m2 defines CKD. Patients with eGFR values >/=60 mL/min/1.73 m2 may also have CKD if evidence of persistent proteinuria is present. The original MDRD equation for estimated GFR is not valid for patients less than 18 years of age. Additional information may be found at www.kdoqi.org. 22 Note: This test has not been established for use in patients less than 18 years of age. 23 FIRST MORNING SPECIMENS GENERALLY CONTAIN THE HIGHEST CONCENTRATION OF HCG AND ARE RECOMMENDED FOR EARLY DETECTION OF . 24 Negative <0.9 Indeterminate 0.9 - 1.0 Positive >1.0 25 0 - 0.6 NG/ML: NO EVIDENCE OF MYOCARDIAL INJURY 0.7 - 1.5 NG/ML: MILD ELEVATION, SUGGESTING POSSIBLE MYOCARDIAL INJURY > 1.5 NG/ML: CONSISTENT WITH MYOCARDIAL INJURY 26 COLONY COUNT ! >100,000 CFU/ml Organism 1 ! ESCHERICHIA COLI QUANTITY ! MANY ESCHERICHIA COLI Target Route Dose M.I.C. RX AB COST ------ ----- -------- ------ -- ------ NITROFURANTOIN BLOOD PO 50 mg <=32 S 0.69 TRIMETHOPRIM/SULFAMETHOXAZOLE BLOOD PO DS <=10 S 0.08 AMPICILLIN BLOOD PO 250 mg 2 S 0.04 IV 1.0 gm S 1.27 IV 2.0 gm S 1.42 CEFAZOLIN BLOOD IV 500 mg <= 8 S 0.90 IV 1.0 gm S 2.16 AMPICILLIN/SULBACTAM BLOOD IV 1.5 gm <=4 S 6.76 IV 3.0 gm S 12.42 CIPROFLOXACIN <=0.5 S PIPERACILLIN/TAZOBACTAM BLOOD IV 3.375 gm & lt;=8 S 12.43 CEFTAZIDIME BLOOD IV 1.0 gm <=8 S 7.18 IM 1.0 gm S 6.40 CEFTRIAXONE BLOOD IV 1.0 gm <=8 S 22.32 IV 2.0 gm S 43.70 LEVOFLOXACIN BLOOD PO 250 mg <=1 S 6.71 PO 500 mg S 7.68 IV 500 mg S 16.21 IMIPENEM BLOOD IV 500 mg &lt ;=4 S 22.49 GENTAMICIN BLOOD IV 80 mg <=0.5 S 2.56 TOBRAMYCIN BLOOD IV 80 mg &lt ;=0.5 S 1.56 CEFUROXIME <=4 S Procedures Date CPT Code Description Status Comment 08/07/2017 31993 Measure Blood Oxygen Level Completed Single Determination 08/07/2017 54572 Init Demo Of Nebulizer/Inhaler Completed Or Ippb &/Or Patients Utilization 03/15/2017 91209 Measure Blood Oxygen Level Completed Single Determination 02/09/2017 Mammogram Completed Document: 02/09/17 - Screening Mammogram Bilateral 12/05/2016 19012 Measure Blood Oxygen Level Completed Single Determination 05/11/2012 11147 Measure Blood Oxygen Level Completed Single Determination 05/06/2011 89975 Remove Skin Tags Up To 15 Completed 10/28/2009 82937 Visual Screening Test Completed 12/25/2008 73647 Measure Blood Oxygen Level Completed Single Determination 12/22/2008 76223 Measure Blood Oxygen Level Completed Single Determination 08/23/2008 42988 Measure Blood Oxygen Level Completed Single Determination Encounters Type Date Location Provider CPT E/M Dx Office Visit 05/13/2017 9:30a [facility] [place] [address] M54.5 Office Visit 03/15/2017 4:00p [facility] [place] [address] J20.9 Office Visit 12/05/2016 10:30a [facility] [place] [address] J06.9 J02.9 Office Visit 08/24/2016 4:00p [facility] [place] [address] J01.90 Office Visit 06/03/2015 3:00p [facility] [place] [address] R30.0 Office Visit 10/01/2014 2:30p [facility] [place] [address] 462 Office Visit 08/30/2014 4:00p [facility] [place] [address] 691.8 994.2 Plan of Care 08/07/2017 - Nicolasa Velazquez MDJ20.9 Acute bronchitis, unspecifiedNew Medication:Prednisone 20 mgComments:bronchitis, chest cold , with head cold.No signs of pneumonia at this time but could developThe mostlikely cause is a virus (over 90% of cases are caused by a virus) that won't respond to antibiotics. Can expect cough to worsen before it improves, and whole illness course may last up to 3-4 weeks, as long as you are not worsening and slowly improve you can just let your body heal. Please call for increased Shortness of breath, temp >=101, increased cough that's productive of colored sputum, chest pain, or cough longer than 4 week, or any other concerns. Pt may try a vaporizer at night to help with mouth dryness and sore throat. May try OTC meds to help relieve symptoms. Recommend use of lower dose prednisone for the wheezing, take daily for 7 days. This should help within 1-2 to days. You may feel a little more wheezy a few days after stopping, call if a concern Take with food, watch for stomach upset, increased appetite, decreased sleep. Recommend addition of albuterol inhaler due to wheezy/cough. Take 2 puffs every 4 hours as needed, I reviewed how to use with patient.Follow up:fu as needed
[2017-08-09 07:53] VITALS: BP 129/80
--- NOTE | 2017-08-09 08:29 | RAD ---
INDICATION: Chest pain COMPARISON: There are no prior studies available for comparison. TECHNIQUE: Dual-energy PA and lateral views of the chest were obtained. FINDINGS: The heart is within normal limits in size. Mediastinal and hilar contours appear within normal limits. The lungs are clear. No pleural effusion or pneumothorax is seen. IMPRESSION: NO EVIDENCE FOR ACTIVE CARDIOPULMONARY DISEASE.
--- NOTE | 2017-08-09 08:52 | ED ---
Respiratory - HPI Summary HPI Summary: 41 yr old female with cough, fever, chills, sore throat, yellow productive sputum. She reports that she has been ill for 4 days. She saw her PMD and he put her on Prednisone and also and MDI. The patient states that she has cough that is annoying. She is requesting a chest xray to be sure no pneumonia. She has no other complaints. - History of Current Complaint Chief Complaint: UCRespiratory Stated Complaint: FEVER,COUGH Time Seen by Provider: 08/09/17 07:56 Pain Intensity: 8 - Allergy/Home Medications Allergies/Adverse Reactions: Allergies Allergy/AdvReac Type Severity Reaction Status Date / Time erythromycin base Allergy Hives and Verified 08/09/17 07:48 Vomiting hydrocodone Allergy Vomiting Verified 08/09/17 07:48 Penicillins Allergy Hives and Verified 08/09/17 07:48 Vomiting Sulfa (Sulfonamide Allergy Hives and Verified 08/09/17 07:48 Antibiotics) Vomiting Home Medications: Home Medications Albuterol HFA INHALER* [Ventolin HFA Inhaler*] 2 puff INH Q4H PRN 08/09/17 [ History Confirmed 08/09/17] Escitalopram (NF) [Lexapro 10 mg (NF)] 10 mg PO DAILY 08/09/17 [History Confirmed 08/09/17] L.acidoph,Paracasei, B.lactis [Probiotic] 1 each PO DAILY 08/09/17 [History Confirmed 08/09/17] Vitamin THERAPEUTIC TAB* [Theragran TAB*] 1 tab PO DAILY 08/09/17 [History Confirmed 08/09/17] predniSONE TAB* [Deltasone TAB*] 20 - 40 mg PO DAILY 08/09/17 [History Confirmed 08/09/17] PMH/Surg Hx/FS Hx/Imm Hx - Surgical History Surgery Procedure, Year, and Place: Tonsilectomy, 2009, [place]; Post Delivery Hemorhhage, 2011, [place] Infectious Disease History: No Infectious Disease History: Denies: Hx Clostridium Difficile, Hx Hepatitis, Hx Human Immunodeficiency Virus (HIV), Hx of Known/Suspected MRSA, Hx Shingles, Hx Tuberculosis, Hx Known/ Suspected VRE, Hx Known/Suspected VRSA, History Other Infectious Disease, Traveled Outside the [place] in Last 30 Days - Family History Known Family History: Positive: Unknown Negative: Respiratory Disease - no asthma fhx. - Social History Occupation: Employed Full-time Lives: With Family Alcohol Use: None Substance Use Type: Reports: None Smoking Status (MU): Never Smoked Tobacco Review of Systems Positive: Fever, Chills Positive: Sore Throat, Nasal Discharge Positive: Cough All Other Systems Reviewed And Are Negative: Yes Physical Exam Triage Information Reviewed: Yes Vital Signs On Initial Exam: Initial Vitals Temp Pulse Resp BP Pulse Ox 100.6 F 102 18 129/80 100 08/09/17 07:44 08/09/17 07:44 08/09/17 07:44 08/09/17 07:44 08/09/17 07:44 Vital Signs Reviewed: Yes Appearance: Positive: Well-Appearing, No Pain Distress Skin: Positive: Warm, Skin Color Reflects Adequate Perfusion Head/Face: Positive: Normal Head/Face Inspection Eyes: Positive: EOMI ENT: Positive: Pharynx normal, Nasal congestion, TMs normal Neck: Positive: Supple, Nontender Respiratory/Lung Sounds: Positive: Clear to Auscultation, Breath Sounds Present Cardiovascular: Positive: RRR. Negative: Murmur Abdomen Description: Positive: Nontender Musculoskeletal: Positive: Strength/ROM Intact Neurological: Positive: Sensory/Motor Intact, Alert, Oriented to Person Place, Time, CN Intact II-III Psychiatric: Positive: Normal - [place] Coma Scale Best Eye Response: 4 - Spontaneous Best Motor Response: 6 - Obeys Commands Best Verbal Response: 5 - Oriented Coma Scale Total: 15 Diagnostics - Vital Signs Vital Signs Temp Pulse Resp BP Pulse Ox 08/09/17 07:44 100.6 F 102 18 129/80 100 - Laboratory Lab Results: Lab Results 08/09/17 Range/Units 08:06 Influenza A (Rapid) Negative (Negative) Influenza B (Rapid) Negative (Negative) Lab Statement: Any lab studies that have been ordered have been reviewed, and results considered in the medical decision making process. Disposition - Course Course Of Treatment: 41 yr old with coughing of yellow sputum, fever, nasal congestion. She states that she takes zpacks with no issues at all. The patient states her only symptom when takes erythromycin is nausea and vomiting. WIll Rx with z pack for coverage for sinusitis. She cannot take pencillin family drugs due to hives. - Diagnoses Provider Diagnoses: Sinusitis, Cough Discharge - Discharge Plan Condition: Good Disposition: HOME Prescriptions: Azithromycin TAB* [Zithromax TAB (Z-PARTH) 250 mg #6 tabs] 2 tab PO .TODAY, THEN 1 DAILY #1 parth Benzonatate CAP* [Tessalon 100 MG CAP*] 100 mg PO TID #14 cap Forms: *Work Release Referrals: Nicolasa Velazquez MD [Primary Care Provider] - 2 Days
== END 2017-08-09 09:08 | disposition home or self-care (01) ==
LOC: UCCORT 07:33
DX: J32.9 Chronic sinusitis, unspecified (principal); R05 Cough
CPT/HCPCS: 71046; 87502; 99212; G0463

== ENCOUNTER 2018-05-22 09:34 | Emergency (ER) | payer BC ==
[2018-05-22 10:27] VITALS: BP 142/87
--- NOTE | 2018-05-22 10:52 | UC ---
Lower Extremity/Ankle HPI - HPI Summary HPI Summary: The patient is a 42-year-old female that presents here with left foot pain. About 2 hours ago she dropped a 24 pound frozen turkey on her left foot. She is able to bear weight painfully. - History of Current Complaint Chief Complaint: UCLowerExtremity Stated Complaint: LEFT FOOT INJURY Time Seen by Provider: 05/22/18 10:43 Hx Obtained From: Patient Hx Last Menstrual Period: 05/14 Onset/Duration: Sudden Onset Severity Initially: Moderate Severity Currently: Moderate Pain Intensity: 6 Pain Scale Used: 0-10 Numeric Aggravating Factor(s): Standing, Ambulation Alleviating Factor(s): Rest, Elevation Able to Bear Weight: Yes - Allergies/Home Medications Allergies/Adverse Reactions: Allergies Allergy/AdvReac Type Severity Reaction Status Date / Time Penicillins Allergy Hives Verified 05/22/18 10:28 Sulfa (Sulfonamide Allergy Hives Verified 05/22/18 10:28 Antibiotics) erythromycin base AdvReac Vomiting Verified 05/22/18 10:28 hydrocodone AdvReac Vomiting Verified 05/22/18 10:28 Home Medications: Home Medications metFORMIN* [Glucophage 500 MG TAB *] 500 mg PO BID 05/22/18 [History Confirmed 05/22/18] PMH/Surg Hx/FS Hx/Imm Hx Previously Healthy: Yes Endocrine History: Diabetes Respiratory History: Asthma Psychological History: Depression - Surgical History Surgical History: Yes Surgery Procedure, Year, and Place: Tonsilectomy, 2009, [place]; Post Delivery Hemorhhage, 2011, [place] - Family History Known Family History: Positive: Unknown Negative: Respiratory Disease - no asthma fhx. - Social History Alcohol Use: None Substance Use Type: None Smoking Status (MU): Never Smoked Tobacco - Immunization History Most Recent Influenza Vaccination: 2012 Hx Tetanus, Diphtheria Vaccination: Yes Vaccination Up to Date: Yes Review of Systems All Other Systems Reviewed And Are Negative: Yes Constitutional: Positive: Negative Skin: Positive: Negative Eyes: Positive: Negative ENT: Positive: Negative Respiratory: Positive: Negative Cardiovascular: Positive: Negative Gastrointestinal: Positive: Negative Genitourinary: Positive: Negative Motor: Positive: Negative Neurovascular: Positive: Negative Musculoskeletal: Positive: Arthralgia Neurological: Positive: Negative Psychological: Positive: Negative Physical Exam Triage Information Reviewed: Yes Appearance: Well-Appearing, No Pain Distress, Well-Nourished Vital Signs: Initial Vital Signs Temp 98 F 05/22/18 10:21 Pulse 82 05/22/18 10:21 Resp 18 05/22/18 10:21 BP 142/87 05/22/18 10:21 Pulse Ox 97 05/22/18 10:21 Eyes: Positive: Conjunctiva Clear ENT: Positive: Hearing grossly normal. Negative: Nasal congestion, Nasal drainage, Trismus, Muffled voice, Hoarse voice Dental Exam: Normal Neck: Positive: Supple, Nontender Respiratory: Positive: Lungs clear, Normal breath sounds, No respiratory distress, No accessory muscle use Cardiovascular: Positive: RRR, No Murmur Musculoskeletal: Positive: No Edema Neurological: Positive: Alert Psychological Exam: Normal Skin Exam: Normal Diagnostics - Radiology No standard instances Radiology Interpretation Completed By: Radiologist Summary of Radiographic Findings: no fx, (+) STS Lower Extremity Course/Dx - Differential Dx/Diagnosis Provider Diagnoses: left foot contusion Discharge - Sign-Out/Discharge Documenting (check all that apply): Patient Departure All imaging exams completed and their final reports reviewed: Yes - Discharge Plan Condition: Stable Disposition: HOME Patient Education Materials: Contusion in Adults (ED), R.I.C.E. Treatment (ED) Referrals: Lela Ojeda MD [Primary Care Provider] - 2 Weeks (if not better) Additional Instructions: tylenol or advil for pain - Billing Disposition and Condition Condition: STABLE Disposition: Home Images Feet (Multiple View): 1 - tender/swollen
== END 2018-05-22 11:56 | disposition home or self-care (01) ==
LOC: UCCORT 09:34
DX: S90.32XA Contusion of left foot, initial encounter (principal); W20.8XXA Other cause of strike by thrown, projected or falling object, initial encounter; Y92.9 Unspecified place or not applicable; Z88.0 Allergy status to penicillin; Z88.1 Allergy status to other antibiotic agents; Z88.5 Allergy status to narcotic agent
CPT/HCPCS: 99213; G0463

== ENCOUNTER 2019-05-24 08:20 | Emergency (ER) | payer BC ==
[2019-05-24 08:35] VITALS: BP 148/75
--- NOTE | 2019-05-24 09:23 | UC ---
Throat Pain/Nasal Reji HPI - HPI Summary HPI Summary: 43-year-old female comes in with a chief complaint of 3-1/2 weeks of sinusitis symptoms. She has frontal sinus pressure. Been using ibuprofen and Sudafed. The ibuprofen does help with the pain. No recent fevers. She's been having rhinorrhea that appears to have dried up at this time. No complaining shortness of breath or wheezing. - History of Current Complaint Chief Complaint: UCGeneralIllness Stated Complaint: SINUS GALLOWAY, PRESSURE Time Seen by Provider: 05/24/19 09:18 Hx Last Menstrual Period: 05/17/19 Pain Intensity: 7 - Allergies/Home Medications Allergies/Adverse Reactions: Allergies Allergy/AdvReac Type Severity Reaction Status Date / Time Penicillins Allergy Hives Verified 05/24/19 08:30 Sulfa (Sulfonamide Allergy Hives Verified 05/24/19 08:30 Antibiotics) erythromycin base AdvReac Vomiting Verified 05/24/19 08:30 hydrocodone AdvReac Vomiting Verified 05/24/19 08:30 Home Medications: Home Medications Acetaminophen [Tylenol Extra Strength] 1,000 mg PO ONCE 05/24/19 [History Confirmed 05/24/19] Ibuprofen TAB* [Advil TAB*] 600 mg PO ONCE 05/24/19 [History Confirmed 05/24/19] Multivitamin [Multiple Vitamins] 1 tab PO DAILY 05/24/19 [History Confirmed ] Pseudoephedrine HCl [Sudafed] 1 tab PO ONCE 05/24/19 [History Confirmed 05/24/19 ] PMH/Surg Hx/FS Hx/Imm Hx Previously Healthy: Yes Endocrine History: Diabetes - Surgical History Surgical History: Yes Surgery Procedure, Year, and Place: Tonsilectomy, 2009, [place];. Post Delivery Hemorhhage, 2011, [place] - Family History Known Family History: Positive: Unknown Negative: Respiratory Disease - no asthma fhx. - Social History Alcohol Use: None Substance Use Type: None Smoking Status (MU): Never Smoked Tobacco - Immunization History Most Recent Influenza Vaccination: 2012 Hx Tetanus, Diphtheria Vaccination: Yes Vaccination Up to Date: Yes Review of Systems All Other Systems Reviewed And Are Negative: Yes Constitutional: Positive: Other - SEE HPI Skin: Positive: Negative Eyes: Positive: Negative ENT: Positive: Nasal Discharge, Sinus Congestion, Sinus Pain/Tenderness Respiratory: Positive: Negative Cardiovascular: Positive: Negative Gastrointestinal: Positive: Negative Motor: Positive: Negative Neurovascular: Positive: Negative Musculoskeletal: Positive: Negative Neurological: Positive: Headache Psychological: Positive: Negative Is Patient Immunocompromised?: No Physical Exam Triage Information Reviewed: Yes Appearance: No Pain Distress, Well-Nourished, Ill-Appearing - MILD Vital Signs: Initial Vital Signs Temp 97.4 F 05/24/19 08:33 Pulse 89 05/24/19 08:33 Resp 15 05/24/19 08:33 BP 148/75 05/24/19 08:33 Pulse Ox 98 05/24/19 08:33 Vital Signs Reviewed: Yes Eye Exam: Normal Eyes: Positive: Conjunctiva Clear ENT: Positive: Pharyngeal erythema, Nasal congestion, Nasal drainage, TMs normal Neck: Positive: Supple Respiratory: Positive: Lungs clear, Normal breath sounds, No respiratory distress Cardiovascular: Positive: RRR Musculoskeletal: Positive: Strength Intact, ROM Intact Neurological: Positive: Alert, Muscle Tone Normal Psychological: Positive: Age Appropriate Behavior Skin Exam: Normal Throat Pain/Nasal Course/Dx - Differential Dx/Diagnosis Provider Diagnosis: Sinusitis Discharge ED - Sign-Out/Discharge Documenting (check all that apply): Patient Departure All imaging exams completed and their final reports reviewed: No Studies - Discharge Plan Condition: Stable Disposition: HOME Prescriptions: DOXYcycline CAP(*) [DOXYcycline 100MG CAP(*)] 100 mg PO BID #20 cap Fluticasone NASAL SPRAY 50MCG* [Flonase NASAL SPRAY 50MCG*] 2 spray BOTH NARES DAILY #1 btl Patient Education Materials: Sinusitis (ED) Referrals: Lela Ojeda MD [Primary Care Provider] - Additional Instructions: FOLLOW UP WITH YOUR DOCTOR IF NOT COMPLETELY IMPROVED. GET REEVALUATED SOONER IF NOT IMPROVING OR WORSE OR ANY QUESTIONS OR CONCERNS. - Billing Disposition and Condition Condition: STABLE Disposition: Home
== END 2019-05-24 09:27 | disposition home or self-care (01) ==
LOC: UCCORT 08:20
DX: J32.9 Chronic sinusitis, unspecified (principal); E11.9 Type 2 diabetes mellitus without complications; Z88.0 Allergy status to penicillin; Z88.2 Allergy status to sulfonamides; Z88.5 Allergy status to narcotic agent; Z88.1 Allergy status to other antibiotic agents
CPT/HCPCS: 99212; G0463

== ENCOUNTER 2019-08-12 09:00 | Emergency (ER) | payer BC ==
[2019-08-12 09:31] VITALS: BP 135/77
--- NOTE | 2019-08-12 09:40 | UC ---
Throat Pain/Nasal Reji HPI - HPI Summary HPI Summary: 43-year-old woman comes in with the chief complaints of sinusitis symptoms. Having a cough for about 3 weeks. Frontal Sinus pressure and postnasal drip for 8 days. No fevers sputum is yellow and green. She does have a cough with some chest congestion. She's been trying [id number] medications without much relief. - History of Current Complaint Chief Complaint: UCRespiratory Stated Complaint: SINUS COUGH SORE THROAT Time Seen by Provider: 08/12/19 09:30 Hx Last Menstrual Period: 08/09/2019 Pain Intensity: 4 - Allergies/Home Medications Allergies/Adverse Reactions: Allergies Allergy/AdvReac Type Severity Reaction Status Date / Time Penicillins Allergy Hives Verified 08/12/19 09:25 Sulfa (Sulfonamide Allergy Hives Verified 08/12/19 09:25 Antibiotics) erythromycin base AdvReac Vomiting Verified 08/12/19 09:25 hydrocodone AdvReac Vomiting Verified 08/12/19 09:25 Home Medications: Home Medications Bcp 1 tab PO DAILY 08/12/19 [History] PMH/Surg Hx/FS Hx/Imm Hx Previously Healthy: Yes Endocrine History: Diabetes - Surgical History Surgical History: Yes Surgery Procedure, Year, and Place: Tonsilectomy, 2009, [place];. Post Delivery Hemorhhage, 2011, [place] - Family History Known Family History: Positive: Unknown Negative: Respiratory Disease - no asthma fhx. - Social History Alcohol Use: None Substance Use Type: None Smoking Status (MU): Never Smoked Tobacco - Immunization History Most Recent Influenza Vaccination: 2012 Hx Tetanus, Diphtheria Vaccination: Yes Vaccination Up to Date: Yes Review of Systems All Other Systems Reviewed And Are Negative: Yes Constitutional: Positive: Other - SEE HPI Skin: Positive: Negative Eyes: Positive: Negative ENT: Positive: Nasal Discharge, Sinus Congestion, Sinus Pain/Tenderness Respiratory: Positive: Cough Cardiovascular: Positive: Negative Gastrointestinal: Positive: Negative Motor: Positive: Negative Neurovascular: Positive: Negative Musculoskeletal: Positive: Negative Neurological: Positive: Headache Psychological: Positive: Negative Is Patient Immunocompromised?: No Physical Exam Triage Information Reviewed: Yes Appearance: No Pain Distress, Well-Nourished, Ill-Appearing - MILD Vital Signs: Initial Vital Signs Temp 97.9 F 08/12/19 09:27 Pulse 89 08/12/19 09:27 Resp 16 08/12/19 09:27 BP 135/77 08/12/19 09:27 Pulse Ox 100 08/12/19 09:27 Vital Signs Reviewed: Yes Eye Exam: Normal Eyes: Positive: Conjunctiva Clear ENT: Positive: Pharyngeal erythema, Nasal congestion, Nasal drainage, TMs normal , Sinus tenderness Neck: Positive: Supple Respiratory: Positive: Lungs clear, Normal breath sounds, No respiratory distress Cardiovascular: Positive: RRR Musculoskeletal: Positive: Strength Intact, ROM Intact Neurological: Positive: Alert Psychological: Positive: Age Appropriate Behavior Skin Exam: Normal Throat Pain/Nasal Course/Dx - Course Course Of Treatment: SX > 10 DAYS - Differential Dx/Diagnosis Provider Diagnosis: Sinusitis Discharge ED - Sign-Out/Discharge Documenting (check all that apply): Patient Departure All imaging exams completed and their final reports reviewed: No Studies - Discharge Plan Condition: Stable Disposition: HOME Prescriptions: DOXYcycline CAP(*) [DOXYcycline 100MG CAP(*)] 100 mg PO BID #20 cap Patient Education Materials: Sinusitis (ED) Referrals: Lela Ojeda MD [Primary Care Provider] - Additional Instructions: FOLLOW UP WITH YOUR DOCTOR IF NOT COMPLETELY IMPROVED. GET REEVALUATED SOONER IF NOT IMPROVING OR WORSE OR ANY QUESTIONS OR CONCERNS. - Billing Disposition and Condition Condition: STABLE Disposition: Home
== END 2019-08-12 09:48 | disposition home or self-care (01) ==
LOC: UCCORT 09:00
DX: J32.9 Chronic sinusitis, unspecified (principal); E11.9 Type 2 diabetes mellitus without complications; Z88.0 Allergy status to penicillin; Z88.2 Allergy status to sulfonamides; Z88.5 Allergy status to narcotic agent
CPT/HCPCS: 99212; G0463